=== PATIENT | female | born 1965 | race Caucasian/White ===

== ENCOUNTER 2019-05-29 12:15 | Inpatient (IN) | payer OTHER ==
[~2019-05-29 12:15] MED LIST: Buffered Lidocaine 1% SYRIN* 1 ML/SYRINGE INTRADERM ONE; Dexamethasone IV* 4 MG/ML 1 ML (4 MG) IV SLOW PU ONE; DiMENhydriNATE IV* 50 MG/ML VIAL IV PUSH PRN; Famotidine IV* 10 MG/ML 2 ML (20 mg) IV ONE; HYDROmorphone INJ1* 1 MG/ML SYRINGE IV PRN; Lactated Ringers 1000 ML Bag* 1,000 ML IV SCH; Naloxone* 0.4 MG/ML 1 ML VIAL IV PRN; Ondansetron INJ* 2 MG/ML VIAL IV ONE; PROCHLORPERAZINE INJ 5 MG/ML 2 ML VIAL IV PRN; Scopolamine 1.5 mg* PATCH TRANSDERM ONE
[2019-05-29] MEDS ORDERED: Midazolam* 1 MG/ML 5 ML VIAL (5 MG) ONE (12:55)
[2019-05-29] MEDS ORDERED: KETAMINE HCL* 50 MG/ML 10 ML VIAL ONE (12:55)
[2019-05-29] MEDS ORDERED: fentaNYL* 50 MCG/ML 5 ML VIAL (250 MCG VIAL) ONE (12:55)
[2019-05-29] MEDS ORDERED: Dexamethasone IV* 4 MG/ML 1 ML (4 MG) ONE (13:54)
[2019-05-29] MEDS ORDERED: Heparin VIAL(*) 5000 UNITS/ML VIAL (FIVE THOUSAND) ONE (13:54)
[2019-05-29] MEDS ORDERED: ceFAZolin 1 GM ADVAN(*) 1 GM ADDV.VIAL IVPB ONE (13:55)
[2019-05-29] MEDS ORDERED: Scopolamine 1.5 mg* PATCH ONE (13:55)
[2019-05-29] MEDS ORDERED: Famotidine IV* 10 MG/ML 2 ML (20 mg) ONE (13:55)
[2019-05-29] MEDS ORDERED: Ondansetron INJ* 2 MG/ML VIAL ONE ×2 (13:55→18:03)
[2019-05-29] MEDS ORDERED: ceFAZolin 2 GM PREMIX in ORs 2 GM/50 ML BAG ONE (13:55)
[2019-05-29] MEDS ORDERED: Methylene Blue 0.5 %* 50 MG/10 ML AMP IV ONE (14:12)
[2019-05-29] MEDS ORDERED: Bupivacaine 0.25% EPI 200,000* 30 ML SDV ONE (14:12)
[2019-05-29] MEDS ORDERED: Rocuronium* 10 MG/ML VIAL ONE (14:40)
[2019-05-29] MEDS ORDERED: Acetaminophen IV 1GM/100ML * 100 ML ONE (14:41)
[2019-05-29] MEDS ORDERED: EPHEDrine (Pressors)* 50 MG/ML VIAL ONE (15:41)
[2019-05-29] MEDS ORDERED: Lidocaine 2% PF * 5 ML VIAL ONE (15:41)
[2019-05-29] MEDS ORDERED: Propofol* 10 MG/ML 20 ML BTL ONE (15:41)
[2019-05-29] MEDS ORDERED: HYDROmorphone INJ1* 1 MG/ML SYRINGE ONE ×2 (15:42→18:02)
[2019-05-29] MEDS ORDERED: Sugammadex * 500 MG/5 ML VIAL IV PUSH ONE (16:29)
[2019-05-29] MEDS ORDERED: hydrALAZINE IV* 20 MG/ML VIAL ONE (16:53)
[2019-05-29] MEDS ORDERED: PROCHLORPERAZINE INJ 5 MG/ML 2 ML VIAL ONE (17:11)
[2019-05-29] MEDS ORDERED: DiMENhydriNATE IV* 50 MG/ML VIAL ONE (17:11)
--- NOTE | 2019-05-29 17:17 | BRIEFOPN ---
Brief Operative/Procedure Note - Operation Details Pre-Op Diagnosis: morbid obesity Post-Op Diagnosis: same Procedures: laparoscopic nhan en y gastric bypass Surgeon(s)/Proceduralists: Richard. Assist: MANUEL Jones; AVANI Sharma Anesthesia: GET Estimated Blood Loss: < 50 ml; IVF: 1700 ml RL Findings: as above Specimen(s)/Culture(s) Description: none Complications: none
[2019-05-29] MEDS ORDERED: Acetaminophen ADULT LIQ* 650 MG/20.3 ML UDC PO PRN (17:23)
[2019-05-29] MEDS ORDERED: HYDROmorphone INJ1* 1 MG/ML SYRINGE IV SLOW PU PRN (17:23)
[2019-05-29] MEDS ORDERED: HYDROmorphone INJ* 0.5 MG/0.5 ML SYRINGE IV SLOW PU PRN (17:23)
[2019-05-29] MEDS ORDERED: Ondansetron INJ* 2 MG/ML VIAL IV PRN (17:23)
[2019-05-29] MEDS ORDERED: HYDROcodone/ACET. 7.5/325 LIQ* 15 ML UDC PO PRN (17:23)
[2019-05-29] MEDS ORDERED: fentaNYL* 50 MCG/ML 2 ML VIAL (100 MCG VIAL) ONE (17:26)
[2019-05-29] MEDS: fentaNYL* 50 MCG/ML 2 ML VIAL (100 MCG VIAL) IV PRN ×2 (17:27→17:33)
[2019-05-29] MEDS: Ketorolac INJ* 30 MG/ML 1 ML VIAL IV SCH ×2 (18:03→23:39)
[2019-05-29] MEDS ORDERED: Ketorolac INJ* 30 MG/ML 1 ML VIAL ONE (18:03)
[2019-05-29] MEDS: Lactated Ringers 1000 ML Bag* 1,000 ML IV SCH (19:20)
[2019-05-29] MEDS: Famotidine IV* 10 MG/ML 2 ML (20 mg) IV SLOW PU SCH (21:37)
[2019-05-29] MEDS: Heparin VIAL(*) 5000 UNITS/ML VIAL (FIVE THOUSAND) SUBCUT SCH (21:38)
[2019-05-29] MEDS: Metoprolol Tartrate IV* 1 MG/ML 5 ML VIAL IV SCH ×2 (21:40→23:40)
--- NOTE | 2019-05-29 23:19 | OP ---
CC: [facility]; Giovani Lincoln MD * DATE OF OPERATION: 05/29/19 - ROOM #333 DATE OF : 67 SURGEON: Lawson Ramos MD CORPORATE ETHICS OFFICER: MANUEL Burrows ANESTHESIOLOGIST: Dr. Akhtar. ANESTHESIA: General endotracheal. PRE-OP DIAGNOSES: Class 2 obesity with hypertension, obstructive sleep apnea, gastroesophageal reflux disease, and hyperlipidemia. POST-OP DIAGNOSES: Class 2 obesity with hypertension, obstructive sleep apnea, gastroesophageal reflux disease and hyperlipidemia. OPERATIVE PROCEDURE: Laparoscopic Chirag-en-Y gastric bypass. ESTIMATED BLOOD LOSS: Less than 50 mL. IV FLUIDS: Crystalloids. SPECIMENS: None. DRAINS: None. COMPLICATIONS: None. COUNTS: The instrument, needle, and sponge counts were correct. DESCRIPTION OF PROCEDURE: The patient was brought to the operating room, placed on the table supine. Sequential compression devices were placed on both lower extremities. General anesthesia was administered. The abdomen was prepped and draped in the usual sterile fashion. A time-out was performed. Local anesthetic was infiltrated into the skin and soft tissue prior to making each incision. Entry to the abdomen was through a left upper quadrant incision accommodating a 12 mm Optical trocar. After accessing the peritoneal cavity, carbon dioxide was insufflated to a pressure of 15 mmHg. Under direct visualization, additional 12 mm bladeless trocars were placed in the supraumbilical midline and also in the right upper quadrant. A 5-mm bladeless trocars were placed in the right upper quadrant medially and left upper quadrant laterally. A Zeyad liver retractor was placed percutaneously in the subxiphoid position and used to elevate the left lobe of the liver. Liver anatomy appeared normal. The patient had a small hiatal hernia. Mobilization of the stomach began by mobilizing the fundus away from the left sophia of the diaphragm. The perigastric dissection was then undertaken on the lesser curvature to enter the lesser sac and with several firings of the Endo ALFREDO stapler with baer cartridges, the gastric pouch was created approximating 15 to 30 mL volume. Staple lines were noted to be intact and hemostatic. The omentum was then retracted cephalad and divided down the midline with the LigaSure. Transverse colon was elevated and the ligament of Treitz was identified. Jejunum was measured out 50 cm. This loop of jejunum was then sutured to the lateral staple line on the gastric pouch with interrupted 2-0 silks. The gastrojejunal anastomosis was then created with the Endo ALFREDO stapler using a 30 mm baer cartridge. The common gastroenterotomy was run closed over a 34-Lithuanian gastric lavage tube. The jejunal loop was divided to the left of the anastomosis. This was done with a baer cartridge on the stapler. The anastomosis was then tested with methylene blue dye solution instilled through the orogastric tube. No leak was identified. The Chirag limb was measured out 75 cm. At this point, a functional end-to-side jejunojejunostomy was created with a 60-mm ALFREDO stapler using a baer cartridge. Common enterotomy was again run closed with 3-0 PDS, running it to and fro, tying it to itself. Anti-obstruction suture 3-0 silk was placed proximally at the anastomosis. The mesenteric defect was closed with interrupted 3-0 silk using [id number] sutures. At the conclusion of the procedure, inspection revealed hemostasis to be excellent. Orientation of the bowel was confirmed. The Zeyad liver retractor was removed under direct visualization. Carbon dioxide was released and all the ports removed. The wounds were closed with 4- 0 Monocryl in subcuticular fashion. Steri-Strips were applied. The patient tolerated the procedure well. She was extubated uneventfully. She was transferred to the recovery room in stable condition. [id number]/[facility] #: [id number] VÍCTOR
[2019-05-30] MEDS: Lactated Ringers 1000 ML Bag* 1,000 ML IV SCH ×3 (01:58→16:20)
[2019-05-30] MEDS: Ketorolac INJ* 30 MG/ML 1 ML VIAL IV SCH ×3 (05:35→17:53)
[2019-05-30] MEDS: Metoprolol Tartrate IV* 1 MG/ML 5 ML VIAL IV SCH ×3 (05:35→17:38)
[2019-05-30] MEDS: Heparin VIAL(*) 5000 UNITS/ML VIAL (FIVE THOUSAND) SUBCUT SCH ×2 (05:41→13:42)
[2019-05-30] MEDS ORDERED: Nicotine PATCH 21 MG/24 HR* PATCH TRANSDERM SCH (09:00)
[2019-05-30] MEDS: Famotidine IV* 10 MG/ML 2 ML (20 mg) IV SLOW PU SCH (09:38)
--- NOTE | 2019-05-30 09:54 | PN ---
Progress Note - Progress Note Date of Service: 05/30/19 Note: S: POD# 1. Doing well. Not much pain. No N/V. Has not yet started clears. No SOB. O: Vital Signs - 8 hr 05/30/19 05/30/19 03:50 05:32 Pulse Rate 47 Blood Pressure 128/61 (mmHg) O2 Sat by Pulse 100 Oximetry Intake and Output Last 24 Hours 05/28/19 05/29/19 05/30/19 05/31/19 06:59 06:59 06:59 06:59 Intake Total 2780 Output Total 1150 350 Balance 1630 -350 Weight 187 lb Intake: IV Fluids 2780 CEFAZOLIN 3 GMIV 100 LR 2680 Oral 0 Output: Urine 1150 350 Gen: appears comfortable; NAD Heart: reg Lungs: clear Abd: lap sites ok; +BS, slightly hypo; soft; no sig tenderness A: s/p lap gastric bypass, doing well P: start lakshmi clears; poss d/c later today? will d/w Dr. Ramos.
[2019-05-30] MEDS ORDERED: diPHENhydraMINE IV* 50 MG/ML 1 ml VIAL (BENADRYL) IV PRN (16:57)
[2019-05-30] MEDS ORDERED: D5W 1/2 NS KCl 20 Meq 1000 ML* 1,000 ML IV SCH (17:28)
[2019-05-30 17:39] VITALS: BP 145/66
[2019-05-30] MEDS ORDERED: Nicotine Patch Removal NOTE PATCH OFF SCH (21:00)
--- NOTE | 2019-05-30 23:00 | DS ---
CC: Dr. Giovani Lincoln at [facility] * DISCHARGE SUMMARY: DATE OF ADMISSION: 05/29/19 DATE OF DISCHARGE: 05/30/19 ATTENDING SURGEON: Dr. Lawson Ramos.* (DICTATED BY MANUEL RIOS) HOSPITAL COURSE: Please refer to admission history and physical and operative note for details. The patient was taken to the operating room on 05/29/19, at which time, she underwent laparoscopic Chirag-en-Y gastric bypass. The surgery was uneventful and she has had an unremarkable postoperative course. As of the afternoon of discharge, she was tolerating bariatric clear liquids well. She did have some facial flushing that she thought may have been related to the anesthesia mask and did receive 1 dose of Benadryl for this. She had no difficulty with breathing, no hives, no pruritus. See also progress note from the same date. Instructions were reviewed regarding wound care, diet and activity. She does have an appointment next week for followup at [facility]. She will resume her usual home medications , i.e., atenolol. She is discharged home in good condition. MANUEL RIOS [id number]/[facility] #: [id number] MTDD
[2019-06-01] MEDS ORDERED: Scopolamine PATCH Remove* 1 NOTE MISC PATCH OFF ONE (06:00)
== END 2019-05-30 19:51 | disposition left against medical advice (07) | DRG 403 ==
LOC: AA 13:39 → SSU 17:17
PROVIDERS: ADMIT Surgery; ATTEND Surgery
PROC: 0D164ZA Bypass Stomach to Jejunum, Percutaneous Endoscopic Approach (ICD-10-PCS; principal; 2019-05-29 14:30)
DX: E66.09 Other obesity due to excess calories (principal); Z68.36 Body mass index [BMI] 36.0-36.9, adult; I10 Essential (primary) hypertension; G47.33 Obstructive sleep apnea (adult) (pediatric); K21.9 Gastro-esophageal reflux disease without esophagitis; E78.5 Hyperlipidemia, unspecified; F41.9 Anxiety disorder, unspecified; F17.210 Nicotine dependence, cigarettes, uncomplicated; Z79.899 Other long term (current) drug therapy; Z88.5 Allergy status to narcotic agent; Z91.018 Allergy to other foods; Z82.49 Family history of ischemic heart disease and other diseases of the circulatory system; Z82.61 Family history of arthritis; Z80.9 Family history of malignant neoplasm, unspecified
CPT/HCPCS: 43644; A9270-GY; J0360; J0690; J0780; J1100; J1170; J1200; J1240; J1644; J1885; J2250; J2405; J2704; J3010; J3490